=== PATIENT | male | born 1995 | race Caucasian/White ===

== ENCOUNTER 2016-12-10 16:24 | Emergency (ER) | payer BC ==
[2016-12-10] MEDS ORDERED: TETANUS,DIPHTHERIA,PERTUSSIS 1 EA SYG IM ONE (17:03)
[2016-12-10] MEDS ORDERED: SULFA/TRIMETH 800/160 (DS) TAB 1 EA TAB PO ONE (17:03)
--- NOTE | 2016-12-10 17:05 | ED.PDOC ---
History of Present Illness - General Time Seen by Provider: 12/10/16 17:02 Source: patient Exam Limitations: no limitations - History of Present Illness Initial Comments: he patient is a 21-year-old male presenting to the emergency roomafter sustaining a 1 cm lacerationover the lateral aspect of the middle phalanx of the fifth digit of the right handwhile cleaning a septic system. The patient moves the hand well. The patient and his family did cleaning extensively at home. Estimated blood loss less than 2 cc. He is neurovascularly intact. He is in need of a tetanus booster. No other trauma. He denies any allergies. Timing/Duration: momentarily Severity: mild Improving Factors: nothing Worsening Factors: nothing Home Medications: Ambulatory Orders Sulfa/Trimeth 800/160 (Ds) Tab [Bactrim DS Tab] 1 ea PO DAILY #7 tab 12/10/16 Review of Systems - Review of Systems Constitutional: States: no symptoms reported EENTM: States: no symptoms reported Respiratory: States: no symptoms reported Cardiology: States: no symptoms reported Gastrointestinal/Abdominal: States: no symptoms reported Genitourinary: States: no symptoms reported Musculoskeletal: States: no symptoms reported Skin: States: see HPI Neurological: States: no symptoms reported Endocrine: States: no symptoms reported All other Systems: No Change from Baseline Physical Exam - Physical Exam General Appearance: Alert, Comfortable, No apparent distress Eye Exam: bilateral normal Ears, Nose, Throat: hearing grossly normal Neck: full range of motion Respiratory: no respiratory distress, no accessory muscle use Cardiovascular/Chest: normal peripheral pulses, no edema Peripheral Pulses: radial,right: 2+, radial,left: 2+ Extremity: normal range of motion, no pedal edema, normal capillary refill Neurologic: no motor/sensory deficits, alert, normal mood/affect, oriented x 3 Skin Exam: normal color - laceration as described above Progress - Progress Progress: 12/10/16 17:05 the patient is a 21-year-old male with a 1cm laceration to the lateral aspect of the fifth digit of the right hand. Due to the contaminated environment in which it occurred, the patient's hand was run under water for 5 minutes. After which peroxide was used to clean the wound and then the wound was pressure irrigated with 250 cc of saline. The patient was given a dose of Bactrim here and will be placed on Bactrim daily for the next 7 days. He also received a tetanus shot here today. Steri-Strips were applied. He needs to keep the wound clean and dry for at least 24 hours. ER warnings were given for any worsening. Departure - Departure Clinical Impression: Laceration of hand Qualifiers: Encounter type: initial encounter Laterality: right Qualified Code(s): S61.411A - Laceration without foreign body of right hand, initial encounter Disposition: Discharge to Home or Self Care Condition: Fair Diet: regular diet Activity: increase activity as tolerated Prescriptions: Sulfa/Trimeth 800/160 (Ds) Tab [Bactrim DS Tab] 1 ea PO DAILY #7 tab Home Medications: Ambulatory Orders Sulfa/Trimeth 800/160 (Ds) Tab [Bactrim DS Tab] 1 ea PO DAILY #7 tab 12/10/16 Additional Instructions: the patient is a 21-year-old male with a 1cm laceration to the lateral aspect of the fifth digit of the right hand. Due to the contaminated environment in which it occurred, the patient's hand was run under water for 5 minutes. After which peroxide was used to clean the wound and then the wound was pressure irrigated with 250 cc of saline. The patient was given a dose of Bactrim here and will be placed on Bactrim daily for the next 7 days. He also received a tetanus shot here today. Steri-Strips were applied. He needs to keep the wound clean and dry for at least 24 hours. ER warnings were given for any worsening. no evidence of neurovascular or functional compromise at this time.
[2016-12-10 17:44] VITALS: BP 116/76; TEMP 97.5; O2SAT 94
== END 2016-12-10 17:51 | disposition home or self-care (01) ==
LOC: ER 16:24
DX: S61.216A Laceration without foreign body of right little finger without damage to nail, initial encounter (principal); Z23 Encounter for immunization; W45.8XXA Other foreign body or object entering through skin, initial encounter